=== PATIENT | male | born 1965 | race Two or more races ===

== ENCOUNTER 2022-05-23 21:01 | Inpatient (IN) | payer MEDICARE, MEDICAID ==
[~2022-05-23] VITALS: Ht 170.2 cm; Wt 83.8 kg
[2022-05-23 22:37] LABS: Basophils # (auto) 0 10 ^3/uL (0-0.2); Basophils % (auto) 0.3 % (0.0-2.0); Eosinophils # (auto) 0 10 ^3/uL (0-0.8); Eosinophils % (auto) 0.3 % (0.0-7.0); Hematocrit 47.5 % (41.0-53.0); Hemoglobin 16.3 g/dL (13.5-17.5); Lymphocytes # (auto) 1.2 10 ^3/uL (0.4-5.4); Lymphocytes % (auto) 6.3 % (10.0-50.0); Mean Corpuscular Hemoglobin 27.8 pg (28.0-32.0); Mean Corpuscular Hgb Conc. 34.3 g/dL (32.0-36.0); Mean Corpuscular Volume 81.1 fL (80.0-100.0); Monocytes # (auto) 0.6 10 ^3/uL (0-1.3); Monocytes % (auto) 3.1 % (0.0-12.0); Neutrophils # (auto) 16.6 10 ^3/uL (1.6-8.6); Nucleated Red Blood Cells % 0.3 %; Red Blood Cells 5.86 10^6/uL (4.5-5.90); Red Cell Distribution Width 13.3 % (11.8-14.3); White Blood Cell 18.5 10^3/uL (4.4-10.8)
[2022-05-23 22:58] LABS: Albumin 4.4 g/dL (3.4-5.0); BUN/Creatinine Ratio 18.8; Calcium 9.4 mg/dL (8.5-10.1); Potassium 4.3 mmol/L (3.5-5.1)
[2022-05-23 23:06] LABS: Total Protein 7.8 g/dL (6.4-8.2)
[2022-05-24] MEDS ORDERED: DEXTROSE (50%) 50ML SYRG IV PRN (01:00)
[2022-05-24] MEDS ORDERED: ONDANSETRON HCL 4 MG/2 ML VIAL IV PRN (01:00)
[2022-05-24] MEDS ORDERED: ACETAMINOPHEN 325 MG TAB PO PRN (01:00)
[2022-05-24 02:05] LABS: Urine Bacteria FEW /hpf (None Seen); Urine Blood Negative /uL (Negative); Urine Mucus FEW (None Seen); Urine Specific Gravity 1.029 (1.001-1.035); Urine Sperm PRESENT /hpf (None Seen); Urine WBC 1 /hpf (0 - 3)
[2022-05-24] MEDS: cefTRIAXone 1GM/50ML D5W 50 ML IV SCH ×2 (06:14→09:53)
[2022-05-24] MEDS: ACCU-CHEK COMFORT CURVE STRIP VI SCH ×4 (06:50→22:37)
[2022-05-24] MEDS: InsuLIN REG 1unit/0.01ml Soln (100units/ml) SC SCH ×4 (06:50→22:48)
[2022-05-24] MEDS: PANTOPRAZOLE 40 MG TAB PO SCH (10:00)
[2022-05-24] MEDS: LOSARTAN POTASSIUM 50 MG TAB PO SCH (10:00)
[2022-05-24] MEDS: ENOXAPARIN SOD 40 MG/0.4 ML SYRINGE SC SCH (10:00)
[2022-05-24] MEDS: CARVEDILOL 3.125 MG TAB PO SCH ×2 (10:00→22:49)
[2022-05-24] MEDS ORDERED: ATORVASTATIN 20 MG TAB PO SCH ×2 (10:00→22:00)
[2022-05-24] MEDS ORDERED: IOHEXOL 350 MG/ML 100ML IJ ONE (10:18)
[2022-05-24 11:18] LABS: Alcohol, Urine < 3.0 mg/dL (0-10); Amphetamine Screen, Urine NEGATIVE (NEGATIVE); Barbiturate Scree,Urine NEGATIVE (NEGATIVE); Benzodiazephine Screen, Urine NEGATIVE (NEGATIVE); Cannabinoid Screen, Urine NEGATIVE (NEGATIVE); Cocaine Screen, Urine NEGATIVE (NEGATIVE); Phencyclidine Screen, Urine NEGATIVE (NEGATIVE)
[2022-05-24 11:23] LABS: Opiate Scree,Urine NEGATIVE (NEGATIVE)
[2022-05-24] MEDS ORDERED: ASPirin 81 mg TAB PO ONE (13:00)
[2022-05-24] MEDS ORDERED: CLOPIDOGREL BISULFATE 75 MG TAB PO ONE (13:00)
[2022-05-24] MEDS: HALOPERIDOL LACTATE 5 MG/ML INJ VIAL IM PRN (14:32)
[2022-05-24] MEDS ORDERED: LORazepam 2MG/ML-1ML VIAL IV PRN (17:15)
[2022-05-24] MEDS: TAMSULOSIN HYDROCHLORIDE 0.4 MG CAP PO SCH (18:00)
[2022-05-24 19:24] LABS: Cholesterol 114 mg/dL (< 200); HDL Cholesterol 38 mg/dL (40-59); LDL Cholesterol 70 mg/dL (< 100); Triglycerides 68 mg/dL (< 150)
[2022-05-24 19:46] LABS: Free T4 (Free Thyroxine) 1.33 ng/dL (0.89-1.76)
[2022-05-24 19:47] LABS: Folate (Folic Acid) 17.03 ng/mL (5.38-24)
[2022-05-25] MEDS: HALOPERIDOL LACTATE 5 MG/ML INJ VIAL IM PRN (03:02)
[2022-05-25 06:45] LABS: Basophils # (auto) 0.1 10 ^3/uL (0-0.2); Basophils % (auto) 0.4 % (0.0-2.0); Eosinophils # (auto) 0 10 ^3/uL (0-0.8); Eosinophils % (auto) 0.2 % (0.0-7.0); Hematocrit 45.9 % (41.0-53.0); Hemoglobin 16.1 g/dL (13.5-17.5); Lymphocytes # (auto) 1.9 10 ^3/uL (0.4-5.4); Lymphocytes % (auto) 14.2 % (10.0-50.0); Mean Corpuscular Hemoglobin 28.4 pg (28.0-32.0); Mean Corpuscular Hgb Conc. 35.1 g/dL (32.0-36.0); Mean Corpuscular Volume 80.8 fL (80.0-100.0); Monocytes # (auto) 1.2 10 ^3/uL (0-1.3); Monocytes % (auto) 8.6 % (0.0-12.0); Neutrophils # (auto) 10.4 10 ^3/uL (1.6-8.6); Neutrophils % (auto) 76.6 % (37.0-80.0); Nucleated Red Blood Cells % 0.1 %; Red Blood Cells 5.68 10^6/uL (4.5-5.90); White Blood Cell 13.6 10^3/uL (4.4-10.8)
[2022-05-25] MEDS: ACCU-CHEK COMFORT CURVE STRIP VI SCH ×4 (06:56→21:45)
[2022-05-25] MEDS: InsuLIN REG 1unit/0.01ml Soln (100units/ml) SC SCH ×4 (06:57→21:49)
[2022-05-25 07:02] LABS: Albumin 4.1 g/dL (3.4-5.0)
[2022-05-25 07:07] LABS: BUN/Creatinine Ratio 25.3; Bilirubin, Direct 0.3 mg/dL (0-0.2); Bilirubin, Total 1.1 mg/dL (0.2-1.0); Total Protein 7.8 g/dL (6.4-8.2)
[2022-05-25] MEDS: cefTRIAXone 1GM/50ML D5W 50 ML IV SCH (09:00)
[2022-05-25] MEDS: ENOXAPARIN SOD 40 MG/0.4 ML SYRINGE SC SCH (11:08)
[2022-05-25] MEDS: PANTOPRAZOLE 40 MG TAB PO SCH (11:10)
[2022-05-25] MEDS: CLOPIDOGREL BISULFATE 75 MG TAB PO SCH (11:11)
[2022-05-25] MEDS: ATORVASTATIN 20 MG TAB PO SCH (11:15)
[2022-05-25] MEDS: LOSARTAN POTASSIUM 50 MG TAB PO SCH (11:15)
[2022-05-25] MEDS: CARVEDILOL 3.125 MG TAB PO SCH ×2 (11:16→21:45)
[2022-05-25] MEDS: ASPirin 81 mg TAB PO SCH (11:17)
[2022-05-25 13:30] VITALS: BP 142/84
[2022-05-25] MEDS ORDERED: TAMS1CAP25 PO (14:23)
[2022-05-25] MEDS ORDERED: GLYB2.5T8 PO (14:23)
[2022-05-25] MEDS ORDERED: ESCI-34 PO (14:23)
[2022-05-25] MEDS ORDERED: ASPI1TAB20 PO (14:23)
[2022-05-25] MEDS ORDERED: CARV3.1240 PO (14:23)
[2022-05-25] MEDS ORDERED: SIMV-8 PO (14:23)
[2022-05-25] MEDS ORDERED: METF-370 PO (14:23)
[2022-05-25] MEDS ORDERED: LOSA-69 PO (14:23)
[2022-05-25 15:15] LABS: Free T4 (Free Thyroxine) 1.29 ng/dL (0.89-1.76)
[2022-05-25 15:16] LABS: Folate (Folic Acid) 15.93 ng/mL (5.38-24)
[2022-05-25 16:34] VITALS: BP 143/93
[2022-05-25] MEDS: TAMSULOSIN HYDROCHLORIDE 0.4 MG CAP PO SCH (17:22)
[2022-05-25 21:30] VITALS: BP 116/84
[2022-05-25 23:13] VITALS: BP 155/88
[2022-05-26 05:00] VITALS: BP 140/71
[2022-05-26] MEDS: InsuLIN REG 1unit/0.01ml Soln (100units/ml) SC SCH ×4 (06:55→21:55)
[2022-05-26] MEDS: ACCU-CHEK COMFORT CURVE STRIP VI SCH ×4 (06:55→21:42)
[2022-05-26 09:00] VITALS: BP 140/78
[2022-05-26] MEDS: cefTRIAXone 1GM/50ML D5W 50 ML IV SCH (09:54)
[2022-05-26] MEDS: CLOPIDOGREL BISULFATE 75 MG TAB PO SCH (09:55)
[2022-05-26] MEDS: ATORVASTATIN 20 MG TAB PO SCH (09:55)
[2022-05-26] MEDS: ENOXAPARIN SOD 40 MG/0.4 ML SYRINGE SC SCH (09:55)
[2022-05-26] MEDS: CARVEDILOL 3.125 MG TAB PO SCH ×2 (09:56→21:44)
[2022-05-26] MEDS: ASPirin 81 mg TAB PO SCH (09:56)
[2022-05-26] MEDS: PANTOPRAZOLE 40 MG TAB PO SCH (09:57)
[2022-05-26] MEDS: LOSARTAN POTASSIUM 50 MG TAB PO SCH (09:57)
[2022-05-26] MEDS: TAMSULOSIN HYDROCHLORIDE 0.4 MG CAP PO SCH (18:22)
[2022-05-26 22:00] VITALS: BP 132/79
[2022-05-27 05:20] VITALS: BP 111/66
[2022-05-27 06:13] LABS: Basophils # (auto) 0.1 10 ^3/uL (0-0.2); Basophils % (auto) 0.5 % (0.0-2.0); Eosinophils # (auto) 0.2 10 ^3/uL (0-0.8); Eosinophils % (auto) 1.8 % (0.0-7.0); Hematocrit 46.3 % (41.0-53.0); Hemoglobin 15.8 g/dL (13.5-17.5); Lymphocytes % (auto) 18.5 % (10.0-50.0); Mean Corpuscular Hemoglobin 28.3 pg (28.0-32.0); Mean Corpuscular Hgb Conc. 34.2 g/dL (32.0-36.0); Mean Corpuscular Volume 82.7 fL (80.0-100.0); Monocytes % (auto) 8.6 % (0.0-12.0); Neutrophils # (auto) 7.8 10 ^3/uL (1.6-8.6); Neutrophils % (auto) 70.6 % (37.0-80.0); Red Cell Distribution Width 13.4 % (11.8-14.3); White Blood Cell 11.1 10^3/uL (4.4-10.8)
[2022-05-27] MEDS: ACCU-CHEK COMFORT CURVE STRIP VI SCH ×4 (06:28→21:59)
[2022-05-27] MEDS: InsuLIN REG 1unit/0.01ml Soln (100units/ml) SC SCH ×4 (06:31→22:12)
[2022-05-27 06:35] LABS: Potassium 3.9 mmol/L (3.5-5.1)
[2022-05-27 06:52] LABS: Albumin 3.8 g/dL (3.4-5.0); BUN/Creatinine Ratio 23.4; Magnesium 2.7 mg/dL (1.6-2.6); Total Protein 6.9 g/dL (6.4-8.2)
[2022-05-27 06:57] LABS: Bilirubin, Total 0.8 mg/dL (0.2-1.0)
[2022-05-27 09:00] VITALS: BP 141/81
[2022-05-27] MEDS: cefTRIAXone 1GM/50ML D5W 50 ML IV SCH (09:28)
[2022-05-27] MEDS: LOSARTAN POTASSIUM 50 MG TAB PO SCH (09:30)
[2022-05-27] MEDS: PANTOPRAZOLE 40 MG TAB PO SCH (09:31)
[2022-05-27] MEDS: CARVEDILOL 3.125 MG TAB PO SCH ×2 (09:31→21:59)
[2022-05-27] MEDS: CLOPIDOGREL BISULFATE 75 MG TAB PO SCH (09:31)
[2022-05-27] MEDS: ASPirin 81 mg TAB PO SCH (09:31)
[2022-05-27] MEDS: ENOXAPARIN SOD 40 MG/0.4 ML SYRINGE SC SCH (09:32)
[2022-05-27] MEDS: ATORVASTATIN 20 MG TAB PO SCH (09:32)
[2022-05-27 13:00] VITALS: BP 134/74
[2022-05-27 15:00] VITALS: BP 132/73
[2022-05-27] MEDS: TAMSULOSIN HYDROCHLORIDE 0.4 MG CAP PO SCH (18:12)
[2022-05-27 22:00] VITALS: BP 135/87
[2022-05-28 05:00] VITALS: BP 116/79
[2022-05-28] MEDS: ACCU-CHEK COMFORT CURVE STRIP VI SCH ×4 (06:42→21:37)
[2022-05-28] MEDS: InsuLIN REG 1unit/0.01ml Soln (100units/ml) SC SCH ×4 (06:43→21:38)
[2022-05-28 09:00] VITALS: BP 133/90
[2022-05-28] MEDS: cefTRIAXone 1GM/50ML D5W 50 ML IV SCH (09:49)
[2022-05-28] MEDS: LOSARTAN POTASSIUM 50 MG TAB PO SCH (09:50)
[2022-05-28] MEDS: ATORVASTATIN 20 MG TAB PO SCH (09:51)
[2022-05-28] MEDS: PANTOPRAZOLE 40 MG TAB PO SCH (09:51)
[2022-05-28] MEDS: ASPirin 81 mg TAB PO SCH (09:51)
[2022-05-28] MEDS: CARVEDILOL 3.125 MG TAB PO SCH ×2 (09:52→22:01)
[2022-05-28] MEDS: CLOPIDOGREL BISULFATE 75 MG TAB PO SCH (09:53)
[2022-05-28] MEDS: ENOXAPARIN SOD 40 MG/0.4 ML SYRINGE SC SCH (09:53)
[2022-05-28 12:10] VITALS: BP 130/86
[2022-05-28] MEDS ORDERED: POLYETHYLENE GLYCOL 17 GM PWDR PO PRN (13:15)
[2022-05-28 16:25] VITALS: BP 124/71
[2022-05-28] MEDS: TAMSULOSIN HYDROCHLORIDE 0.4 MG CAP PO SCH (17:43)
[2022-05-28 22:00] VITALS: BP 112/70
[2022-05-29 05:00] VITALS: BP 120/73
[2022-05-29] MEDS: ACCU-CHEK COMFORT CURVE STRIP VI SCH ×3 (06:15→18:24)
[2022-05-29] MEDS: InsuLIN REG 1unit/0.01ml Soln (100units/ml) SC SCH ×3 (06:16→18:26)
[2022-05-29 08:26] VITALS: BP 128/78
[2022-05-29] MEDS: ENOXAPARIN SOD 40 MG/0.4 ML SYRINGE SC SCH (10:45)
[2022-05-29] MEDS: cefTRIAXone 1GM/50ML D5W 50 ML IV SCH (10:45)
[2022-05-29] MEDS: ATORVASTATIN 20 MG TAB PO SCH (10:45)
[2022-05-29] MEDS: ASPirin 81 mg TAB PO SCH (10:46)
[2022-05-29] MEDS: CLOPIDOGREL BISULFATE 75 MG TAB PO SCH (10:46)
[2022-05-29] MEDS: PANTOPRAZOLE 40 MG TAB PO SCH (10:46)
[2022-05-29] MEDS: LOSARTAN POTASSIUM 50 MG TAB PO SCH (10:48)
[2022-05-29] MEDS: CARVEDILOL 3.125 MG TAB PO SCH (10:49)
[2022-05-29 12:59] VITALS: BP 146/89
[2022-05-29 16:32] VITALS: BP 142/78
[2022-05-29] MEDS: TAMSULOSIN HYDROCHLORIDE 0.4 MG CAP PO SCH (18:55)
[2022-05-29 20:22] VITALS: BP 146/89
== END 2022-05-29 20:50 | DRG 64 ==
LOC: ER 21:04 → OVERFLOW 05-24 00:56 → EAST 05-25 13:03 → TELE-EAST 05-26 02:50
PROVIDERS: ADMIT Nurse Practitioner; ATTEND Internal Medicine
DX: I63.9 Cerebral infarction, unspecified (principal); G92.8 Other toxic encephalopathy; E44.0 Moderate protein-calorie malnutrition; N39.0 Urinary tract infection, site not specified; I69.351 Hemiplegia and hemiparesis following cerebral infarction affecting right dominant side; I10 Essential (primary) hypertension; Z20.822 Contact with and (suspected) exposure to COVID-19; E78.5 Hyperlipidemia, unspecified; H53.462 Homonymous bilateral field defects, left side; E11.9 Type 2 diabetes mellitus without complications; Z68.27 Body mass index [BMI] 27.0-27.9, adult; Z79.82 Long term (current) use of aspirin; Z79.899 Other long term (current) drug therapy; Z83.3 Family history of diabetes mellitus
CPT/HCPCS: 36415; 70450; 70496; 70551; 71045; 80053; 80061; 80307; 81001; 82248; 82607; 82746; 82962; 83036; 83605; 83735; 83880; 84439; 84443; 84484; 85025; 87040; 87426; 92610; 96365; 96366; 97110; 97116; G0378; J0696; J1815

== ENCOUNTER 2023-04-17 17:12 | Emergency (ER) | payer MEDICARE, MEDICAID ==
[~2023-04-17] VITALS: Ht 157.5 cm; Wt 73.4 kg
[~2023-04-17 17:12] MED LIST: ASPI1TAB20 PO; CARV3.1240 PO; ESCI1TAB37 PO; GLYB2.5T8 PO; LOSA50TA46 PO; METF-370 PO; SIMV20TA20 PO; TAMS1CAP25 PO
[2023-04-17 18:18] LABS: Base Excess 0.4 mmol/L (-2.0-2.0)
[2023-04-17 18:53] LABS: Basophils # (auto) 0 10 ^3/uL (0-0.2); Basophils % (auto) 0.3 % (0.0-2.0); Eosinophils # (auto) 0 10 ^3/uL (0-0.8); Eosinophils % (auto) 0.3 % (0.0-7.0); Hematocrit 45.1 % (41.0-53.0); Hemoglobin 15.8 g/dL (13.5-17.5); Lymphocytes # (auto) 1.6 10 ^3/uL (0.4-5.4); Lymphocytes % (auto) 11.3 % (10.0-50.0); Mean Corpuscular Hemoglobin 28.2 pg (28.0-32.0); Mean Corpuscular Hgb Conc. 35.1 g/dL (32.0-36.0); Mean Corpuscular Volume 80.3 fL (80.0-100.0); Monocytes % (auto) 7.3 % (0.0-12.0); Neutrophils # (auto) 11.2 10 ^3/uL (1.6-8.6); Neutrophils % (auto) 80.8 % (37.0-80.0); Nucleated Red Blood Cells % 0.3 %; Red Blood Cells 5.61 10^6/uL (4.5-5.90); Red Cell Distribution Width 14.3 % (11.8-14.3); White Blood Cell 13.8 10^3/uL (4.4-10.8)
[2023-04-17 18:56] LABS: Alanine Aminotransferase 31 U/L (7-40); Albumin 4.9 g/dL (3.2-4.8); Alkaline Phosphatase 65 U/L (46-116); Anion Gap 12 (5-15); Aspartate Aminotransferase 37 U/L (13-40); BUN/Creatinine Ratio 21.5 (10.0-20.0); Bilirubin, Total 1.4 mg/dL (0.2-1.0); Blood Urea Nitrogen 20 mg/dL (9-23); Calcium 9.9 mg/dL (8.5-10.1); Carbon Dioxide 21 mmol/L (20-30); Chloride 105 mmol/L (98-107); Glucose 206 mg/dL (74-106); Potassium 4.1 mmol/L (3.5-5.1); Sodium 138 mmol/L (136-145); Total Protein 7.6 g/dL (5.7-8.2)
[2023-04-17 20:30] VITALS: BP 133/77; PULSE 88; RESP 16; TEMP 98.7; O2SAT 97
== END 2023-04-17 20:37 | disposition home or self-care (01) ==
LOC: ER 17:12
DX: S09.8XXA Other specified injuries of head, initial encounter (principal); E11.9 Type 2 diabetes mellitus without complications; E78.5 Hyperlipidemia, unspecified; Z86.73 Personal history of transient ischemic attack (TIA), and cerebral infarction without residual deficits; W18.39XA Other fall on same level, initial encounter; Y93.89 Activity, other specified; Y92.89 Other specified places as the place of occurrence of the external cause; Y99.8 Other external cause status
CPT/HCPCS: 36415; 70450; 80053; 84484; 85025; 93005